=== PATIENT | female | born 1985 | race Asian ===

== ENCOUNTER 2021-06-12 22:27 | Outpatient (CLI) | payer OTHER ==
[~2021-06-12] VITALS: Ht 154.9 cm; Wt 67.3 kg
--- NOTE | 2021-06-12 22:35 | NUR ---
[birth year]35- 35 yo, , 40.0: Pt arrives to OB unit via w/c, accompanied by spouse, Jona. Pt c/o ctx every 5 minutes and LOF. Pt escorted to room and instructions given. Pt reports +FM, +CTX, -VB and unsure of LOF. Pt reports she was seen in the office today and was /-3. 2243- EFM and [place] applied. Pt oriented to room. VSS. Afebrile. Rates pain 5/10 when hiram. 2250- SVE performed by this RN /-3. Amniotrace negative. No fluid observed upon cervical exam. 0- Pt request to ambulate around room. Monitors removed. 2351- Monitors applied. SVE /-2. Pt reports some of the ctx feel more painful, but tolerable. 2356- Dr. Kaufman called and notified of pt's arrival and status. Will watch pt for 1-2 more hours and if unchanged can be discharged home with labor precautions and if pt continues to make cervical change will be admitted for labor. 0000- Water provided to pt and spouse. Pt request birthing ball. Pt bouncing on birthing ball at bs. Call light at bs. Pt denies any further needs at this time. 0057- Pt reports ctx feel closer together and some more intense then others. Pt back to bed for cervical exam. 0100- SVE performed and pt unchanged. D/W pt about being discharged home and when to return. Pt would like to wait 1 more hour and see if she makes cervical change. Will watch pt for 1 more hour and recheck cervix. If pt unchanged will send pt home with labor precautions and when to return. Pt and spouse are in agreement with this plan.
[2021-06-12] MEDS ORDERED: PRENATAL TABLET PO (22:54)
[2021-06-12 23:00] VITALS: BP 119/78; PULSE 104; TEMP 98.4
[2021-06-12 23:10] VITALS: TEMP 98.4
[2021-06-13 02:15] VITALS: BP 102/69; PULSE 92
--- NOTE | 2021-06-13 02:25 | NUR ---
0200- SVE PERFORMED BY THIS RN AND CERVIX REMAINS UNCHANGED. D/W PT ABOUT EARLY LABOR. THOROUGHLY D/W PT AND SPOUSE ABOUT WHEN TO RETURN TO HOSPITAL AND DC INSTRUCTIONS. 0220- VSS. DC INSTRUCTIONS REVIEWD AND SIGNED. PT DEMONSTRATES UNDERSTANDING. 0229- PT AMBULATES OFF FLOOR, ACCOMPAINIED BY SPOUSE. DC HOME
== END 2021-06-13 02:29 | disposition home or self-care (01) ==
LOC: LDRO 22:27 → LDR 22:27 → LDRO 22:30 → LDR 22:35 → LDRO 23:09 → LDR 06-13 02:29 → LDRO 06-13 02:29
DX: O62.9 Abnormality of forces of labor, unspecified (principal); Z3A.00 Weeks of gestation of pregnancy not specified
CPT/HCPCS: OP

== ENCOUNTER 2021-06-13 16:45 | Inpatient (IN) | payer OTHER ==
[~2021-06-13] VITALS: Ht 154.9 cm; Wt 66.8 kg
[2021-06-13] VITALS (26 sets, daily range): BP systolic 95–117; BP diastolic 52–68; PULSE 105–136; TEMP 99.1–101.9
[~2021-06-13 16:45] MED LIST: PRENATAL TABLET PO
--- NOTE | 2021-06-13 16:50 | NUR ---
PT AMBULATORY TO LR2 WITH SPOUSE, CHANGED INTO GOWN, FHR/TOCO PLACED. PT IS HERE WITH C/O UC'S SINCE SHE LEFT AT 3 AM THIS MORNING. DENIES ANY LEAKING OF FLUID, VAG BLEEDING, OR DECREASED MOVEMENT. POC DISCUSSED. QUESTIONS ANSWERED. ORAL TEMP NOTED AT 99.7. ROBERT LUTZ AT BEDSIDE ASSISTING WITH PT, AND NOTIFIES DR. CARRILLO.
[2021-06-13 18:22] LABS: BASO % 0.3 % (0.0-2.0); EOS # 0.1 K/mm3 (0.0-0.7); EOS % 0.8 % (0.0-4.0); GRAN # 13.2 K/mm3 (1.4-6.5); GRAN % 85.3 % (42.2-75.2); HEMOGLOBIN 12.3 g/dl (12.5-16.0); LYMPH # 0.7 K/mm3 (1.2-3.4); LYMPH % 4.4 % (20.0-51.0); MEAN CELL VOLUME 81 fl (80.0-100.0); MEAN CORPUSCULAR HEMOGLOBIN 27 pg (27-31); MEAN CORPUSCULAR HGB CONC 33 g/dl (33.0-37.0); MEAN PLATELET VOLUME 9.5 fl (7.4-10.4); MONO # 1.3 K/mm3 (0.1-0.6); MONO % 8.3 % (1.7-9.3); PLATELET COUNT 353 K/mm3 (130-400); RED BLOOD COUNT 4.55 M/mm3 (4.10-5.30); REDCELL DISTRIBUTION WIDTH-CV 16.5 % (11.5-14.5)
[2021-06-13 18:23] LABS: HEMATOCRIT 36.9 % (37.0-47.0)
--- NOTE | 2021-06-13 18:25 | NUR ---
Report received from Shaunna JONES. Pt requesting epidural at this time. CRandalRod LIQUEFIER notified. LR bolus already infusing. Pt appears to be in a lot of pain and just worn out. Pt very hot to touch. 1839: Aleah at bedside for epidural placement. Pt assisted to edge of bed. Procedure explained by LIQUEFIER. 1844: Wet tap noted and verbalized by LIQUEFIER. Single shot administered. 1849: Pt assisted to wedge right position. Pt educated on signs and symptoms she should be looking for due to epidural placement. Pt reports headache at this time but states it is "not that bad." Orders to keep epidural catheter placed and abdominal binder to be placed after delivery. Pt denies questions at this time. Reports relief from contractions. Pt talking and laughing. 1901: called for update on pt. See physican notification. 1917: BP 96/53 with intermittent late variable notes. Ephedrine administered. 1921: Pt reports being nauseous and about to throw up. Prn zofran administered. 1924: at bedside and plan of care explained. Questions answered. 1927: SVE unchanged by provider. AROM completed at this time by provider. Clear fluid noted. Pt assisted into teja pose with help of provider. remains on unit at nurses station and reviews FHR strip. 1954: reviewing FHR strip. Orders to start pitocin at this time received. 1999: Pitocin explained and started at 2mus/hr per protocol at this time. 2004: Arreaga catheter inserted without diffculty. UA received. SVE by Zac JONES. 2039: Recurrent late variables notes. Pt repositioned to left lateral position. 2055: Pt reports feeling pain. SVE 6/90/0. Pt repositioned to Right lateral with peanut ball. 2058: called for update on pt while in room. See physican notification. Plan of care explained to pt.
[2021-06-13 20:20] LABS: COLLECTION METHOD CLEAN CATCH
[2021-06-13 20:35] LABS: MUCOUS Present (NOT PRESENT); PH 5 (5-8); URINE APPEARANCE Hazy (CLEAR/HAZY); URINE BACTERIA Rare /hpf (NONE SEEN); URINE BILIRUBIN Negative (NEGATIVE); URINE BLOOD 2+ (NEGATIVE); URINE COLOR Yellow (YELLOW); URINE GLUCOSE 1+ (NEGATIVE); URINE KETONE 2+ (NEGATIVE); URINE LEUKOCYTE ESTERASE Negative (NEGATIVE); URINE NITRATE Negative (NEGATIVE); URINE PROTEIN(semi-quant) Negative (NEGATIVE); URINE RBC >50 /hpf (0-2); URINE UROBILINOGEN Negative (NEGATIVE)
[2021-06-14] VITALS (31 sets, daily range): BP systolic 82–126; BP diastolic 46–64; PULSE 80–126; TEMP 97.2–101.5
--- NOTE | 2021-06-14 00:30 | NUR ---
Pt called out stating she was feeling a lot of pressure. SVE 9/+1. Encouraged pt to try to not push due to cervix not being complete. Epidural RN ER pushed. 0032: FHR deceleration noted down to the 70s at lowest point, lasting 420 seconds. 0033: Pt repositioned to RL position with pitocin shut off shortly after. 0034: Pt repositioned to LL. 0036: Oxygen applied at 10L via oxymask. 0037: FHR with spontaneous return to baseline. 0040: Tylenol given for elevated temperature. 0050: notified of pts status. See physican notification.
--- NOTE | 2021-06-14 02:45 | NUR ---
SVE complete. Pushing with contractions explained. Arreaga removed. 0252: Pt starts pushing with this RN. 0356: Pt feeling exhausted. Discussion on labor down at this time had. Pt states she would like to do this. Pericare completed and pads changed. 0358: called and update on pts status given. See physican notification. 0412: Recurrent late decels noted. Pt repositioned to wedge right position. temp noted 101.3. 0420: Recurrent late variables continued. Pt repositioned to left lateral. LR bolus started. Pitocin turned off. 0425: at bedside. Update on elevated temp and recurrent lates since laboring down. Pitocion off. Discussion on vacuum delivery VS had with pt and at this time. Pt states she would like to go ahead and attempt a vacuum delivery. Pt repositioned into footplates and prepped for delivery. 0435: Straight catherization completed by provider. 0436: Pt begins pushing with provider and vacuum placed with no traction. 0440: Pt pushing with contractions and traction applied by . 0441: Pop off X1 at this time by provider. Vacuum reapplied after contraction is complete. 0443: Pt pushing with contractions and traction applied by . Pop off X2 noted. Vacuum reapplied between pushes. Tractions applied. 0444: Pop off X3 noted. talks with pt about protocol of 3 pop offs and wanting to reapply vacuum due to babies head moving down well. Pt verbalized her understanding and would like to continue with vacuum. 0448: Vacuum reapplied. Pt pushing with contractions and traction applied by . 0449: Delivery of infants head. Vacuum removed with spontanous delivery of infants body following by . Infant to mothers chest where dried and stimulated by nursery RN. Cord clamped X2 and cut by FOB. Care of assummed by Domenica JONES. 0453: Spontaneous delivery of intact placenta by . Pitocin started at 333mus/hr per protocol. Third degree laceration repaired by provider. 0457: IM methergine given per verbal orders. Pericare provided. Plan of care and safety precautions explained to pt and spouse who verbalize their understanding. Bleeding WNL. Juice and crackers given.
--- NOTE | 2021-06-14 08:30 | NUR ---
Pt reports feeling dizzy and lightheaded when sitting up and trying to ambulate to the bathroom. Daphne-care done in bed and assist pt with stand-pivot to the wheelchair for transfer to room 219. Assisted pt to bed. Oriented to room, bed and call light within reach. Plan of care reviewed with pt and at the bedside.
--- NOTE | 2021-06-14 10:50 | NUR ---
Pt up to the bathroom with stand-by assist and without complications. Pt was able to void. Daphne-care done. Plan of care reviewed with pt.
[2021-06-15 04:00] VITALS: BP 87/53; PULSE 82; TEMP 97.7
--- NOTE | 2021-06-15 06:43 | NUR ---
REPORT RECEIVED FROM OFF GOING RN, GABRIELA Gaming CARE TAKEN OVER BY THIS RN.
[2021-06-15 07:42] VITALS: BP 96/40; PULSE 96; TEMP 97.9
--- NOTE | 2021-06-15 09:15 | NUR ---
Initial visit; Parents thanked [facility] for offering Congratulations and God's blessings for the of their daughter. [facility] thanked family for choosing [facility].
[2021-06-15 16:24] VITALS: BP 100/63; PULSE 82; TEMP 97.9
[2021-06-15 21:30] VITALS: BP 96/53; PULSE 80; TEMP 97.9
[2021-06-16] MEDS ORDERED: PERCOCET 325 MG1 TA2 PO (08:56)
[2021-06-16] MEDS ORDERED: IBU800 M1 PO (08:57)
[2021-06-16 09:00] VITALS: BP 114/80; PULSE 76; TEMP 97.9
--- NOTE | 2021-06-16 13:55 | NUR ---
1315 RN IN PATIENT ROOM TO DISCUSS DISCHARGE INFORMATION. MOTHER ON COUCH READY TO BREASTFEED INFANT. MOTHER STATES HER NECK HAS BEEN HURTING. MOTHER IS QUESTIONING IF IT IS FROM HER EPIDURAL. MOTHER STATES SHE IS WEARING HER BINDER TO HELP WITH COMPRESSION. THIS RN CALLS LEONCIO SCHERER TO COME SPEAK WITH PATIENT ABOUT SYMPTOMS. GILMER UPDATES THIS RN THAT PATIENT MAY BENEFIT FROM BLOOD PATCH. PATIENT MY DC HOME WITH OUT PATCH IF SO CHOOSES.
--- NOTE | 2021-06-16 14:29 | NUR ---
1400 RN DISCUSSED GETTING BLOOD PATCH PRIOR TO DISCHARGE. PT UNDECIDED AT THIS TIME. PT REQUESTS TO NAP A LITTLE LONGER AND TO DRINK SOME PEPSI FOR CAFFEINE. THIS RN WILL CHECK IN ON PT IN COUPLE HOURS AFTER NAP. PATIENT AGREES TO PLAN.
[2021-06-16 16:30] VITALS: BP 107/63; PULSE 82; TEMP 98
--- NOTE | 2021-06-16 18:11 | NUR ---
1625 PT STATES SHE IS FEELING BETTER AFTER HER NAP. IBUPROFEN GIVEN NOW. DISCHARGE INSTRUCTIONS PROVIDED. MOTHER REQUESTS TO LEARN SIDE LYING BEFORE DISCHARGE. THIS RN PROVIDES EDUCATION. ALL OTHER QUESTIONS ANSWERED AT THIS TIME. PT THEY ORDERED DINNER AND WILL BE READY TO GO HOME AFTER THEY EAT. 1800 PT LEAVING UNIT WITH . INFANT IN CARSEAT WITH STRAPS CHECKED. THIS RN ESCORTS PATIENT OFF UNIT AND VISUALIZES PLACED REAR FACING IN VEHICLE.
== END 2021-06-16 18:00 | disposition home or self-care (01) | DRG 768 ==
LOC: LDRO 16:45 → OB 16:50 → LDR 16:50 → OB 06-14 08:34 → LDR 06-14 08:35 → OB 06-16 18:00
PROVIDERS: Student in an Organized Health Care Education/Training Program; ADMIT Obstetrics & Gynecology
PROC: 10D07Z6 Extraction of Products of Conception, Vacuum, Via Natural or Artificial Opening (ICD-10-PCS; principal; 2021-06-14)
PROC: 0DQR0ZZ Repair Anal Sphincter, Open Approach (ICD-10-PCS; 2021-06-14)
PROC: 10907ZC Drainage of Amniotic Fluid, Therapeutic from Products of Conception, Via Natural or Artificial Opening (ICD-10-PCS; 2021-06-14)
DX: O99.824 Streptococcus B carrier state complicating childbirth (principal); Z37.0 Single live birth; O41.1230 Chorioamnionitis, third trimester, not applicable or unspecified; O34.13 Maternal care for benign tumor of corpus uteri, third trimester; D25.9 Leiomyoma of uterus, unspecified; O76 Abnormality in fetal heart rate and rhythm complicating labor and delivery; O75.81 Maternal exhaustion complicating labor and delivery; O70.20 Third degree perineal laceration during delivery, unspecified; O69.81X0 Labor and delivery complicated by cord around neck, without compression, not applicable or unspecified; Z20.822 Contact with and (suspected) exposure to COVID-19; Z3A.40 40 weeks gestation of pregnancy; Z23 Encounter for immunization
CPT/HCPCS: J0290; J0461; J1580; J2210; J2405; J2540; J2590; J2710; J7040; J7120

== ENCOUNTER 2022-07-29 14:01 | Outpatient (RCR) | payer OTHER ==
[~2022-07-29 14:01] MED LIST changes: +IBU800 M1 PO; +PERCOCET 325 MG1 TA2 PO
== END 2022-08-04 | disposition home or self-care (01) ==
LOC: WSOH
DX: S23.3XXA Sprain of ligaments of thoracic spine, initial encounter (principal); Y99.0 Civilian activity done for income or pay

== ENCOUNTER 2023-12-31 12:55 | Day surgery (SDC) | payer BC ==
[~2023-12-31] VITALS: Ht 154.9 cm; Wt 51.5 kg
[~2023-12-31 12:55] MED LIST changes: +Famotidine 20 MG TAB PO SCH; +LR 1,000 ML IV SCH
[2023-12-31 13:44] VITALS: BP 100/68; PULSE 65; TEMP 97.6
[2023-12-31] MEDS ORDERED: fentaNYL 50 MCG/ML 2 ML VIAL ONE (14:46)
[2023-12-31] MEDS ORDERED: Lidocaine PF 2% (20 MG/ML) 5 ML VIAL ONE (14:47)
[2023-12-31] MEDS ORDERED: droPERidol 2.5 MG/ML 2 ML VIAL IV PRN (15:00)
[2023-12-31] MEDS ORDERED: fentaNYL 50 MCG/ML 1 ML SYRINGE/VIAL [PACU/SDC ONLY] IV PRN (15:00)
[2023-12-31] MEDS ORDERED: Morphine 2 MG/1 ML VIAL [PACU/SDC ONLY] IV PRN (15:00)
[2023-12-31] MEDS ORDERED: HYDROmorphone 1 MG/1 ML SYRINGE [PACU/SDC ONLY] IV PRN (15:00)
[2023-12-31] MEDS ORDERED: Meperidine 50 MG/ML 1 ML VIAL IV PRN (15:00)
[2023-12-31] MEDS ORDERED: Ondansetron 4 MG/2 ML VIAL IV PRN (15:00)
[2023-12-31] MEDS ORDERED: Lidocaine 1% w EPI (1:100,000) 20 ML Multi-Dose VIAL IJ ONE (16:22)
[2023-12-31] MEDS ORDERED: Bacitracin Topical Oint 30 GM TUBE TOP ONE (16:22)
[2023-12-31 16:54] VITALS: BP 87/50; PULSE 58; TEMP 96.8
--- NOTE | 2023-12-31 16:54 | NUR ---
PATIENT RETURNS TO ROOM 6 PER CART FROM SURGERY ACCOMPANIED BY MARCIO JONES AND JUAN Hill CRNA. PATIENT AROUSES TO VERBAL STIMULI. DRESSING ON THE RIGHT SIDE OF NECK CDI. DENIES DIFFICULTY SWALLOWING OR PAIN. IVF INFUSING. CALL LIGHT IN REACH. WILL ALLOW PATIENT TO REST AND CONTINUE TO MONITOR.
[2023-12-31] MEDS ORDERED: Ketorolac 15 MG/ML VIAL IV SCH (17:00)
[2023-12-31] MEDS ORDERED: Naloxone 0.4 MG/ML VIAL IV PRN (17:00)
[2023-12-31] MEDS ORDERED: oxyCODONE 5 MG TAB PO PRN (17:00)
[2023-12-31] MEDS ORDERED: NORCO 325 MG-51 TAB PO (17:06)
[2023-12-31 17:11] VITALS: BP 93/52; PULSE 52
--- NOTE | 2023-12-31 17:11 | NUR ---
SIPPING ON WATER. DENIES PAIN OR SWALLOING.
[2023-12-31 17:26] VITALS: BP 100/51; PULSE 53
--- NOTE | 2023-12-31 17:26 | NUR ---
IV DISCONTINUED AND SITE IS FREE OF REDNESS. DRESSING REMAINS CLEAN AND DRY ON THE RIGHT SIDE OF NECK. NO COMPLAINTS OF PAIN OR NAUSEA.
--- NOTE | 2023-12-31 17:35 | NUR ---
DISCHARGE INSTRUCTIONS GIVEN AND PATIENT VOICES UNDERSTANDING OF THESE. SPOUSE WAS NOTIFIED OF DISCHARGE AND IS WAITING IN ER PARKING LOT.
--- NOTE | 2023-12-31 17:40 | NUR ---
PATIENT DISCHARGED TO HOME DRIVEN BY SPOUSE PER PRIVATE VEHICLE AND TAKEN TO CAR PER WHEELCHAIR BY THIS RN. DISCHARGED TO HOME WITH INSTRUCTIONS IN HAND.
[2023-12-31] MEDS ORDERED: Acetaminophen 500 MG TAB PO SCH (17:55)
[2024-01-01] MEDS ORDERED: Ibuprofen 600 MG TAB PO SCH (17:00)
== END 2023-12-31 17:40 | disposition home or self-care (01) ==
LOC: SDCO 12:55
DX: D17.79 Benign lipomatous neoplasm of other sites (principal)
CPT/HCPCS: J2704; J3010; J7120